=== PATIENT | female | born 1975 | race Caucasian/White ===

== ENCOUNTER 2021-07-30 23:02 | Emergency (ER) | payer BC, OTHER ==
[~2021-07-30] VITALS: Ht 162.6 cm; Wt 86.5 kg
[2021-07-31] MEDS ORDERED: DEXAMETHASONE 4 MG TABLET PO ONE (00:30)
[2021-07-31] MEDS ORDERED: DEXAMETHASONE 4 MG TABLET ONE (00:31)
[2021-07-31 00:40] VITALS: BP 115/77
== END 2021-07-31 01:47 | disposition home or self-care (01) ==
LOC: ED 23:45
DX: U07.1 COVID-19 (principal); J20.8 Acute bronchitis due to other specified organisms; J06.9 Acute upper respiratory infection, unspecified; R06.02 Shortness of breath
CPT/HCPCS: 71045; 93005; 99283